=== PATIENT | female | born 1955 | race Caucasian/White ===

== ENCOUNTER → 2016-10-11 | Outpatient (CLI) | payer BC ==
[~2016-10-11] MED LIST: ATIVAN0.5 MG PO; BRINTELLIX5 MG PO; LAMOTRIGINE50 MG PO; LIPITOR20 MG PO; MIRAPEX0.25 MG PO; MULTI VITAMIN1 EACH PO; SYNTHROID0.05 MG PO; WELLBUTRIN PO
--- NOTE | ~2016-10-11 | EKG ---
PATIENT: ULISES WHARTON UNIT #: [id number] Ventricular Rate: 73 BPM Atrial Rate: 73 BPM P-R Interval: 158 ms QRS Duration: 78 ms Q-T Interval: 396 ms QTC Calculation(Bezet): 436 ms P [place]: 61 degrees Calculated R [place]: 14 degrees Calculated T [place]: 69 degrees Diagnosis Line: Normal sinus rhythm Diagnosis Line: Normal ECG Diagnosis Line: No previous ECGs available Diagnosis Line: Confirmed by ALEXANDER SO MD ([id number]) on 10/11/2016 Diagnosis Line: 5:47:27 PM INTERPRETING MD: SARAY FREITAS
--- NOTE | ~2016-10-11 | CO ---
Unit #: [id number] #: [id number] Patient: ULISES WHARTON [id number] [address] [address] [id number] O MR#: [id number] NAME: ULISES WHARTON ROOM: Age: 61 Sex: F Admission Date: 10/11/2016 : 1955 Attending Physician: Shilo Escalera M.D. Requesting Physician: Shilo Escalera M.D. Consultation Date: 10/11/2016 CONSULTATION REPORT REASON FOR CONSULTATION Pre-ECT medical evaluation for ECT scheduled by Dr. Shilo Escalera for October 12, 2016. HISTORY OF PRESENT ILLNESS The patient is a 61-year-old female who presents to preprocedural screening for the reason as indicated above. She denies upper chest, back, arm, neck, or jaw pain or pressure. She does state that she feels anxiety in her chest, but this is a typical response for her to anxiety. She denies shortness of air, dyspnea on exertion, paroxysmal nocturnal dyspnea, orthopnea, and obstructive sleep apnea. She denies palpitations. She denies lightheadedness, dizziness, presyncope, or syncope. She denies myocardial infarction or known history of heart problems and denies congestive heart failure, CVA, TIA, diabetes mellitus, and history of kidney issues. PAST MEDICAL HISTORY 1. Depression with history of ECT. 2. History of left breast cancer, status post lumpectomy with lymph node dissection, status post chemotherapy, status post radiation therapy. 3. Anxiety. 4. Hypothyroidism. 5. Hyperlipidemia. 6. Osteoarthritis. PAST SURGICAL HISTORY 1. Breast biopsy bilaterally x2 and left breast lumpectomy with lymph node dissection. 2. Right total hip arthroplasty in 2014. 3. Hysterectomy. Patient denies a personal and family history of complications to anesthesia. ALLERGIES NAPROXEN CAUSES A RASH. Denies latex allergy. HOME MEDICATIONS Patient is to bring a list of her medications to be entered into the system tomorrow. SOCIAL HISTORY Denies tobacco use and illicit drug use. Drinks ETOH socially. Unit #: [id number] #: [id number] Patient: ULISES WHARTON FAMILY HISTORY Denies coronary artery disease, diabetes, stroke, congestive heart failure, and hypertension. REVIEW OF SYSTEMS Patient states she "feels anxious" today. She has a very small laceration on the lateral aspect of the third finger without erythema, edema, induration, or tenderness. A 10-point review of systems was conducted and was otherwise negative except as indicated under History of Present Illness above. PHYSICAL EXAMINATION GENERAL: A 61-year-old female awake, alert, and in no acute distress. VITAL SIGNS: Temperature 99.2, heart rate 69, respiratory rate 16, blood pressure 104/72, and oxygen saturation 99% on room air. HEENT: Atraumatic and normocephalic. Sclerae are anicteric. No discharge from eyes, ears, or nares. LYMPHATICS: No preauricular, postauricular, tonsillar, submental, anterior, or posterior cervical adenopathy. ENDOCRINE: Small bilateral fibroid nodules without thyromegaly, nontender. RESPIRATORY: Clear to auscultation all torre bilaterally without wheezes, rhonchi, or rales. CARDIOVASCULAR: S1 and S2, regular rate and rhythm, without murmur or rub. GASTROINTESTINAL: Bowel sounds positive x4. Soft, nontender, and nondistended. EXTREMITIES: No edema, cyanosis, or clubbing. MUSCULOSKELETAL: Strength 5 over 5 all extremities bilaterally to flexion and extension without atrophy or muscle tenderness. NEUROLOGIC: Alert and oriented x3. Speech clear. Follows commands and moves all extremities bilaterally. DIAGNOSTIC STUDIES LABORATORY: WBC 5.9, hemoglobin 14.4, hematocrit 41.8, and platelets 281,000. Sodium 137, potassium 4.1, chloride 107, CO2 of 23, glucose 96, BUN 12, creatinine 0.9, calcium 9.4, AST 29, ALT 32, alkaline phosphatase 92, bilirubin total 0.7, total protein 7.6, and albumin 4.9. TSH 1.12. Urinalysis with leukocyte esterase 2+, WBCs 5-10, bacteria negative, and squamous cells none seen. Urine culture and sensitivity report pending at this time. CARDIOLOGY: 12-lead EKG normal sinus rhythm, normal ECG, confirmed report pending at this time. IMPRESSION Patient is a 61-year-old female who presents to preprocedural screening for: 1. Pre-electroconvulsive therapy medical evaluation. Patient's Caro Revised Cardiac Risk Index is equal to 0.4%. This represents the patient's risk if she were undergoing a surgical procedure not involving the chest or abdomen for cardiac , fatal or nonfatal myocardial infarction, cardiopulmonary arrest, arrhythmia, and/or pulmonary edema. Patient wishes to proceed with electroconvulsive therapy at this time. 2. History of left breast cancer, status post lumpectomy and lymph node dissection, status post chemotherapy and radiation therapy. Stable. 3. Anxiety and depression. 4. Hypothyroidism. Her TSH is in normal range today. Unit #: [id number] #: [id number] Patient: ULISES WHARTON 5. Hyperlipidemia. 6. Osteoarthritis. 7. Left third finger laceration, small, without evidence of infection. Thank you for allowing us to participate in the care of this patient. All further beth-ECT orders including medication management will be by Dr. Escalera. Dictated by... Yokasta Johnson A.P.R.N. for Caridad Sinah/pao TD: 10/11/2016 14:05 JOB #: [id number] CONSULTATION REPORT X Yokasta Johnson APRN X CONSULTATION REPORT
[2016-10-11 12:08] LABS: HEMATOCRIT 41.8 % (35.0-45.0); HEMOGLOBIN 14.4 gm/dL (12.0-16.0); MEAN CELL VOLUME 90.7 FL (83-96); MEAN CORPUSCULAR HEMOGLOBIN 31.2 PG (28-34); MEAN CORPUSCULAR HGB CONC 34.4 g/dL (30-36); MEAN PLATELET VOLUME 8.4 FL (6.5-11.5); RED BLOOD COUNT 4.61 X10e (3.90-5.30); RED CELL DISTRIBUTION WIDTH 12.6 % (11.0-15.5); WHITE BLOOD COUNT 5.9 X10e3 (4.0-10.5)
[2016-10-11 12:12] LABS: URINE APPEARANCE CLOUDY; URINE BILIRUBIN NEG (NEG); URINE BLOOD NEG (NEG); URINE COLOR YELLOW; URINE GLUCOSE NEG (NEG); URINE KETONE NEG (NEG); URINE LEUKOCYTE ESTERASE 2+ (NEG); URINE NITRATE NEG (NEG); URINE PROTEIN NEG (NEG); URINE SPECIFIC GRAVITY 1.011 (1.003-1.035); URINE UROBILINOGEN 0.2 MG/DL (NEG)
[2016-10-11 12:14] LABS: URBCS1 AUWI 0-2 /[HPF] (0-2); URINE BACTERIA AUWI NEG (NEGATIVE); URINE SQUAMOUS EPITHELIAL CELL NONE SEEN /[HPF]
[2016-10-11 12:15] LABS: URINE SOURCE CLEAN CATCH
[2016-10-11 12:40] LABS: ALBUMIN SERUM 4.9 g/dL (3.5-5.0); ALKALINE PHOSPHATASE 92 U/L (32-92); ALT (SGPT) 32 U/L (10-40); AST (SGOT) 29 U/L (10-42); BILIRUBIN,TOTAL 0.7 mg/dL (0.2-2.0); BLOOD UREA NITROGEN 12 mg/dL (9-23); BUN/CREATININE RATIO 13.33; CALCIUM SERUM 9.4 mg/dL (8.4-10.2); CARBON DIOXIDE 23 mmol/L (22-31); CHLORIDE 107 mmol/L (100-111); CREATININE SERUM 0.9 mg/dL (0.6-1.4); GLOM FILT RATE Estimated ABOVE60 mL/min (>60); GLUCOSE FASTING 96 mg/dL (70-110); POTASSIUM 4.1 mmol/L (3.5-5.1); PROTEIN TOTAL SERUM 7.6 g/dL (6.0-8.3); SODIUM 137 mmol/L (135-145)
== END | disposition home or self-care (01) ==
LOC: CAMB 11:26
PROVIDERS: Psychiatry & Neurology Psychiatry
DX: Z01.818 Encounter for other preprocedural examination (principal); F33.2 Major depressive disorder, recurrent severe without psychotic features
CPT/HCPCS: 36415; 80053; 81003; 84443; 85027; 93005

== ENCOUNTER → 2016-10-12 | Day surgery (SDC) | payer BC ==
--- NOTE | ~2016-10-12 | ECT ---
Unit #: [id number] #: [id number] Patient: ULISES WHARTON [id number] [address] [address] [id number] O MR#: [id number] NAME: ULISES WHARTON ROOM: Age: 61 Sex: F Admission Date: 10/12/2016 : 1955 Discharge Date: Attending Physician: Shilo Escalera M.D. Primary Care Physician: Primary Care Physician No ECT NOTE DATE OF TREATMENT 10/12/2016 TREATMENT NUMBER 1 TREATMENT MODALITY Unilateral ECT ANESTHESIA Glycopyrrolate: 0.2 mg Brevital: 150 mg Succinylcholine: 100 mg TREATMENT PARAMETERS Charge: 72 millicoulombs Pulse Width: 1.0 milliseconds Frequency: 30 Hertz Duration: 1.5 seconds Current: 800 milliamps TREATMENT DELIVERED Energy: 14.8 joules Impedance: 256 ohms Charge: 72 millicoulombs SEIZURE MEASURES OMS: 41 seconds EE seconds COMPLICATIONS None. SUMMARY The patient had a good seizure with OMS and EEG measures. Depression is pretty significant with psychomotor retardation, poor focus and concentration, loss of interest in activities. No suicidal or homicidal ideation is noted. I will continue her ECT treatments on Saturday. DIFFERENTIAL DIAGNOSES AXIS I: F33.2. AXIS II: Deferred. AXIS III: Nothing acute. Unit #: [id number] #: [id number] Patient: ULISES WHARTON Dictated by... Caridad Petty/hermila TD: 10/13/2016 14:00 JOB #: [id number] ECT NOTE X Shilo Escalera MD <ELECTRONICALLY SIGNED> 03/26/17 1702 X ECT
== END | disposition home or self-care (01) ==
LOC: CSUR 07:58
DX: F33.2 Major depressive disorder, recurrent severe without psychotic features (principal); E03.9 Hypothyroidism, unspecified; E78.5 Hyperlipidemia, unspecified; Z79.899 Other long term (current) drug therapy; Z90.710 Acquired absence of both cervix and uterus; Z98.890 Other specified postprocedural states; Z88.8 Allergy status to other drugs, medicaments and biological substances
CPT/HCPCS: 90870; J0330

== ENCOUNTER → 2016-10-15 | Day surgery (SDC) | payer BC ==
--- NOTE | ~2016-10-15 | ECT ---
Unit #: [id number] #: [id number] Patient: ULISES WHARTON [id number] [address] [address] [id number] O MR#: [id number] NAME: ULISES WHARTON ROOM: Age: 61 Sex: F Admission Date: 10/15/2016 : 1955 Discharge Date: Attending Physician: Shilo Escalera M.D. Primary Care Physician: Primary Care Physician No ECT NOTE DATE OF TREATMENT 10/15/2016 TREATMENT NUMBER Two. TREATMENT MODALITY Unilateral ECT. ANESTHESIA Glycopyrrolate: 0.2 mg Brevital: 130 mg Succinylcholine: 100 mg TREATMENT PARAMETERS Charge: 288 millicoulombs Pulse Width: 1.0 milliseconds Frequency: 40 Hertz Duration: 4.5 seconds Current: 800 milliamps TREATMENT DELIVERED Energy: 60.5 joules Impedance: 252 ohms Charge: 288 millicoulombs SEIZURE MEASURES OMS: 29 seconds EE seconds COMPLICATIONS None. SUMMARY The patient had a good seizure with her OMS and EEG measures on her second stimulus, she feels like she has already gotten a little bit of improvement just from her initial stimulus on Saturday. I will continue her ECT treatments on Saturday and we will continue to follow. DIFFERENTIAL DIAGNOSES AXIS I: F33.2. AXIS II: Deferred. AXIS III: Nothing acute. Unit #: [id number] #: [id number] Patient: ULISES WHARTON AXIS IV: AXIS V: Dictated by... Caridad Petty/marvin TD: 10/16/2016 10:39 JOB #: [id number] ECT NOTE X Shilo Escalera MD <ELECTRONICALLY SIGNED> 03/26/17 1702 X ECT
== END | disposition home or self-care (01) ==
LOC: CSUR 08:08
DX: F33.2 Major depressive disorder, recurrent severe without psychotic features (principal); E03.9 Hypothyroidism, unspecified; E78.5 Hyperlipidemia, unspecified; Z79.899 Other long term (current) drug therapy; Z88.8 Allergy status to other drugs, medicaments and biological substances; Z90.710 Acquired absence of both cervix and uterus; Z96.641 Presence of right artificial hip joint; Z85.3 Personal history of malignant neoplasm of breast
CPT/HCPCS: 90870; J0330

== ENCOUNTER → 2016-10-17 | Day surgery (SDC) | payer BC ==
--- NOTE | ~2016-10-17 | ECT ---
Unit #: [id number] #: [id number] Patient: ULISES WHARTON [id number] [address] [id number] O MR#: [id number] NAME: ULISES WHARTON ROOM: Age: 61 Sex: F Admission Date: 10/17/2016 : 1955 Discharge Date: Attending Physician: Shilo Escalera M.D. Primary Care Physician: Primary Care Physician No ECT NOTE DATE OF TREATMENT 10/17/2016 TREATMENT NUMBER 3 TREATMENT MODALITY Unilateral ECT ANESTHESIA Glycopyrrolate: 0.2 mg Brevital: 150 mg Succinylcholine: 100 mg TREATMENT PARAMETERS Charge: 288 millicoulombs Pulse Width: 1.0 milliseconds Frequency: 40 Hertz Duration: 4.5 seconds Current: 800 milliamps TREATMENT DELIVERED Energy: 62.8 joules Impedance: 262 ohms Charge: 288 millicoulombs SEIZURE MEASURES OMS: 14 seconds EE seconds COMPLICATIONS None. SUMMARY The patient had a good seizure with her OMS and EEG measures. She has noticed a marked improvement of her depressive symptoms at her first 2 ECT's. I will put her on the schedule for Saturday and if we need to adjust her treatment at that point or if she feels that she has gotten back into remission, we can wrap it up at that point. DIFFERENTIAL DIAGNOSES AXIS I: F33.2. AXIS II: Deferred. AXIS III: Nothing acute. Unit #: [id number] #: [id number] Patient: ULISES WHARTON Dictated by... Caridad Petty/hermila TD: 10/17/2016 22:09 JOB #: [id number] ECT NOTE X Shilo Escalera MD <ELECTRONICALLY SIGNED> 03/26/17 1702 X ECT
== END | disposition home or self-care (01) ==
LOC: CSUR 06:57
DX: F33.2 Major depressive disorder, recurrent severe without psychotic features (principal); E78.5 Hyperlipidemia, unspecified; E03.9 Hypothyroidism, unspecified; Z88.8 Allergy status to other drugs, medicaments and biological substances; Z79.899 Other long term (current) drug therapy; Z90.710 Acquired absence of both cervix and uterus; Z96.641 Presence of right artificial hip joint; Z98.890 Other specified postprocedural states
CPT/HCPCS: 90870; J0330; J1885

== ENCOUNTER → 2016-10-22 | Day surgery (SDC) | payer BC ==
--- NOTE | ~2016-10-22 | ECT ---
Unit #: [id number] #: [id number] Patient: ULISES WHARTON [id number] [address] [address] [id number] O MR#: [id number] NAME: ULISES WHARTON ROOM: Age: 61 Sex: F Admission Date: 10/22/2016 : 1955 Discharge Date: Attending Physician: Shilo Escalera M.D. Primary Care Physician: Primary Care Physician No ECT NOTE DATE OF TREATMENT 10/22/2016 TREATMENT NUMBER Four. TREATMENT MODALITY Unilateral ECT. ANESTHESIA Glycopyrrolate: 0.2 mg Brevital: 150 mg Succinylcholine: 100 mg TREATMENT PARAMETERS Charge: 288 millicoulombs Pulse Width: 1.0 milliseconds Frequency: 40 Hertz Duration: 4.5 seconds Current: 800 milliamps TREATMENT DELIVERED Energy: 63.4 joules Impedance: 263 ohms Charge: 288 millicoulombs SEIZURE MEASURES OMS: 22 seconds EE seconds COMPLICATIONS None. SUMMARY The patient had a good seizure with both OMS and EEG measures. Depression has shown a bit of relapse over the last several days. She had some psychomotor retardation, poor focus and concentration, and loss of interest in activities, some decreased appetite. No suicidal or homicidal ideation is noted today. I will continue her ECT treatments on Saturday. DIFFERENTIAL DIAGNOSES AXIS I: F33.2. AXIS II: Deferred. Unit #: [id number] #: [id number] Patient: ULISES WHARTON AXIS III: Nothing acute. AXIS IV: AXIS V: Dictated by... Shilo Escalera M.D. ALEXANDER/marvin TD: 10/23/2016 12:47 JOB #: [id number] ECT NOTE Page 1 of 1 X Shilo Escalera MD <ELECTRONICALLY SIGNED> 03/26/17 1702 X ECT
== END | disposition home or self-care (01) ==
LOC: CSUR 07:07
DX: F33.2 Major depressive disorder, recurrent severe without psychotic features (principal); E03.9 Hypothyroidism, unspecified; E78.00 Pure hypercholesterolemia, unspecified; Z79.899 Other long term (current) drug therapy; Z88.6 Allergy status to analgesic agent; Z90.710 Acquired absence of both cervix and uterus
CPT/HCPCS: 90870; J1885

== ENCOUNTER → 2016-10-24 | Day surgery (SDC) | payer BC ==
--- NOTE | ~2016-10-24 | ECT ---
Unit #: [id number] #: [id number] Patient: ULISES WHARTON [id number] [address] [address] [id number] O MR#: [id number] NAME: ULISES WHARTON ROOM: Age: 61 Sex: F Admission Date: 10/24/2016 : 1955 Discharge Date: Attending Physician: Shilo Escalera M.D. Primary Care Physician: No Primary Care Physician ECT NOTE DATE OF TREATMENT 10/24/2016 TREATMENT NUMBER Five. TREATMENT MODALITY Unilateral ECT. ANESTHESIA Glycopyrrolate: 0.2 mg. Brevital: 150 mg. Succinylcholine: 100 mg. TREATMENT PARAMETERS Charge: 288 millicoulombs Pulse Width: 1.08 milliseconds Frequency: 40 Hertz Duration: 4.5 seconds Current: 800 milliamps TREATMENT DELIVERED Energy: 65.1 joules Impedance: 272 ohms Charge: 288 millicoulombs SEIZURE MEASURES OMS: 27 seconds EE seconds COMPLICATIONS None. SUMMARY The patient had a good seizure with OMS and EEG measures. Depression seems to be pretty well controlled from her ECT treatment thus far. Will give her one more ECT on Saturday. She is going to be out of town next week and we will just wait until she gets back into town and assess at that point. DIFFERENTIAL DIAGNOSES AXIS I: F33.2. Unit #: [id number] #: [id number] Patient: ULISES WHARTON AXIS II: Deferred. AXIS III: Nothing acute. Dictated by... Shilo Escalera M.D. ALEXANDER/mc TD: 10/24/2016 12:20 JOB #: [id number] ECT NOTE Page 1 of 1 X Shilo Escalera MD <ELECTRONICALLY SIGNED> 03/26/17 1702 X ECT
== END | disposition home or self-care (01) ==
LOC: CSUR 07:04
DX: F33.2 Major depressive disorder, recurrent severe without psychotic features (principal); E03.9 Hypothyroidism, unspecified; Z79.899 Other long term (current) drug therapy; Z88.8 Allergy status to other drugs, medicaments and biological substances
CPT/HCPCS: 90870; J0330; J1885

== ENCOUNTER → 2016-10-26 | Day surgery (SDC) | payer BC ==
--- NOTE | ~2016-10-26 | ECT ---
Unit #: [id number] #: [id number] Patient: ULISES WHARTON [id number] [address] [address] [id number] O MR#: [id number] NAME: ULISES WHARTON ROOM: Age: 61 Sex: F Admission Date: 10/26/2016 : 1955 Discharge Date: Attending Physician: Shilo Escalera M.D. Primary Care Physician: No Primary Care Physician ECT NOTE DATE OF TREATMENT 10/26/2016 TREATMENT NUMBER Six. TREATMENT MODALITY Unilateral ECT. ANESTHESIA Glycopyrrolate: 0.2 mg Brevital: 150 mg Succinylcholine: 100 mg TREATMENT PARAMETERS Charge: 288 millicoulombs Pulse Width: 1.0 milliseconds Frequency: 40 Hertz Duration: 4.5 seconds Current: 800 milliamps TREATMENT DELIVERED Energy: 59.7 joules Impedance: 252 ohms Charge: 288 millicoulombs SEIZURE MEASURES OMS: 18 seconds EE seconds COMPLICATIONS None. SUMMARY The patient had a good seizure with OMS and EEG measures. Her depression has remitted. We do not see any symptoms of depression on evaluation today and we will conclude her ECT treatments today. DIFFERENTIAL DIAGNOSES AXIS I: F33.2 AXIS II: Deferred. Unit #: [id number] #: [id number] Patient: ULISES WHARTON AXIS III: Nothing acute. Dictated by... Shilo Escalera M.D. ALEXANDER/kamaljit TD: 10/26/2016 13:54 JOB #: [id number] ECT NOTE Page 1 of 1 X Shilo Escalera MD <ELECTRONICALLY SIGNED> 03/26/17 1702 X ECT
== END | disposition home or self-care (01) ==
LOC: CSUR 07:21
DX: F33.2 Major depressive disorder, recurrent severe without psychotic features (principal); E03.9 Hypothyroidism, unspecified; Z79.899 Other long term (current) drug therapy; Z88.6 Allergy status to analgesic agent; Z90.710 Acquired absence of both cervix and uterus; Z96.641 Presence of right artificial hip joint
CPT/HCPCS: 90870; J0330; J1885

== ENCOUNTER → 2016-11-07 | Day surgery (SDC) | payer BC ==
--- NOTE | ~2016-11-07 | ECT ---
Unit #: [id number] #: [id number] Patient: ULISES WHARTON [id number] [address] [address] [id number] O MR#: [id number] NAME: ULISES WHARTON ROOM: Age: 61 Sex: F Admission Date: 11/07/2016 : 1955 Discharge Date: Attending Physician: Shilo Escalera M.D. Referring Physician: Shilo Escalera M.D. Primary Care Physician: Primary Care Physician No ECT NOTE DATE OF TREATMENT 11/07/2016 TREATMENT NUMBER Maintenance 1 TREATMENT MODALITY Unilateral ECT. ANESTHESIA Glycopyrrolate: 0.2 mg Brevital: 150 mg Succinylcholine: 100 mg TREATMENT PARAMETERS Charge: 352 millicoulombs Pulse Width: 1.0 milliseconds Frequency: 40 Hertz Duration: 5.5 seconds Current: 800 milliamps TREATMENT DELIVERED Energy: 77.4 joules Impedance: 268 ohms Charge: 352 millicoulombs SEIZURE MEASURES OMS: 25 seconds EE seconds COMPLICATIONS None. SUMMARY The patient had a good seizure with OMS and EEG measures. Maintenance ECT has been initiated and we will begin her ECT at an interval of one month and assess and just follow. If we need to shorten up that interval we will over the next month or so, we will just kind of watch and see how she does. DIFFERENTIAL DIAGNOSIS [place] I: F33.2. [place] II: Deferred. [place] III: Nothing acute. Unit #: [id number] #: [id number] Patient: ULISES WHARTON Dictated by... Caridad Petty/milton TD: 11/28/2016 06:57 JOB #: [id number] ECT NOTE Page 1 of 1 X Shilo Escalera MD <ELECTRONICALLY SIGNED> 03/04/17 1207 X ECT
== END | disposition home or self-care (01) ==
LOC: CSUR 06:57
DX: F33.2 Major depressive disorder, recurrent severe without psychotic features (principal); E03.9 Hypothyroidism, unspecified; E78.00 Pure hypercholesterolemia, unspecified; Z79.899 Other long term (current) drug therapy; Z88.6 Allergy status to analgesic agent
CPT/HCPCS: 90870; J0330; J1885

== ENCOUNTER → 2016-11-30 | Day surgery (SDC) | payer BC ==
--- NOTE | ~2016-11-30 | ECT ---
Unit #: [id number] #: [id number] Patient: ULISES WHARTON [id number] [address] [address] [id number] O MR#: [id number] NAME: ULISES WHARTON ROOM: Age: 61 Sex: F Admission Date: 11/30/2016 : 1955 Discharge Date: Attending Physician: Shilo Escalera M.D. Primary Care Physician: Primary Care Physician No ECT NOTE DATE OF TREATMENT 11/30/2016 TREATMENT NUMBER 2, maintenance TREATMENT MODALITY Unilateral ECT. ANESTHESIA Glycopyrrolate: 0.2 mg. Brevital: 150 mg. Succinylcholine: 100 mg. TREATMENT PARAMETERS Charge: 352 millicoulombs Pulse Width: 1.0 milliseconds Frequency: 40 Hertz Duration: 5.5 seconds Current: 800 milliamps TREATMENT DELIVERED Energy: 70.4 joules Impedance: 241 ohms Charge: 352 millicoulombs SEIZURE MEASURES OMS: 29 seconds EE seconds COMPLICATIONS None. SUMMARY The patient had a good seizure with OMS and EEG measures. Depression has not shown a whole lot of change in the last couple of weeks, but she has noted some mild return of symptoms, so we will continue her ECT as a maintenance in the next 2 weeks. DIFFERENTIAL DIAGNOSES AXIS I: F33.2 AXIS II: Deferred. Unit #: [id number] #: [id number] Patient: ULISES WHARTON AXIS III: Nothing acute. Dictated by... Caridad Petty/david TD: 11/30/2016 12:51 JOB #: [id number] ECT NOTE Page 1 of 1 X Shilo Escalera MD <ELECTRONICALLY SIGNED> 03/04/17 1207 X ECT
== END | disposition home or self-care (01) ==
LOC: CSUR 08:27
DX: F33.2 Major depressive disorder, recurrent severe without psychotic features (principal)
CPT/HCPCS: 90870; J0330; J1885

== ENCOUNTER → 2016-12-24 | Day surgery (SDC) | payer BC ==
--- NOTE | ~2016-12-24 | ECT ---
Unit #: [id number] #: [id number] Patient: ULISES WHARTON [id number] [address] [address] [id number] O MR#: [id number] NAME: ULISES WHARTON ROOM: Age: 61 Sex: F Admission Date: 12/24/2016 : 1955 Discharge Date: Attending Physician: Shilo Escalera M.D. Primary Care Physician: Primary Care Physician No ECT NOTE DATE OF TREATMENT 12/24/2016 TREATMENT NUMBER 3 TREATMENT MODALITY Unilateral ECT. ANESTHESIA Glycopyrrolate: 0.2 mg Brevital: 150 mg Succinylcholine: 100 mg TREATMENT PARAMETERS Charge: 352 millicoulombs Pulse Width: 1.0 milliseconds Frequency: 40 Hertz Duration: 5.5 seconds Current: 800 milliamps TREATMENT DELIVERED Energy: 70.4 joules Impedance: 247 ohms Charge: 352 millicoulombs SEIZURE MEASURES OMS: 15 seconds EE seconds COMPLICATIONS None. SUMMARY Patient had a good seizure with OMS and EEG measures. Her depression continues to be a bit of a persistent problem though the maintenance ECT does seem to be keeping things at bay. I will bring her back in 2 weeks for another maintenance ECT and we will evaluate and adjust as needed. DIFFERENTIAL DIAGNOSIS [place] I: F.33.2. [place] II: Deferred. [place] III: Nothing acute. Unit #: [id number] #: [id number] Patient: ULISES WHARTON Dictated by... Caridad Petty/sarah TD: 12/25/2016 04:47 JOB #: [id number] ECT NOTE Page 1 of 1 X Shilo Escalera MD <ELECTRONICALLY SIGNED> 03/04/17 1207 X ECT
== END | disposition home or self-care (01) ==
LOC: CSUR 07:53
DX: F33.2 Major depressive disorder, recurrent severe without psychotic features (principal); E03.9 Hypothyroidism, unspecified; E78.5 Hyperlipidemia, unspecified; Z79.899 Other long term (current) drug therapy; M19.90 Unspecified osteoarthritis, unspecified site; Z85.3 Personal history of malignant neoplasm of breast; Z90.710 Acquired absence of both cervix and uterus; Z88.8 Allergy status to other drugs, medicaments and biological substances; Z88.6 Allergy status to analgesic agent
CPT/HCPCS: 90870; J1885

== ENCOUNTER → 2017-02-01 | Day surgery (SDC) | payer BC ==
--- NOTE | ~2017-02-01 | ECT ---
Unit #: [id number] #: [id number] Patient: ULISES WAHRTON [id number] [address] [address] [id number] O MR#: [id number] NAME: ULISES WHARTON ROOM: Age: 61 Sex: F Admission Date: 02/01/2017 : 1955 Discharge Date: Attending Physician: Shilo Escalera M.D. Primary Care Physician: Primary Care Physician No ECT NOTE DATE OF TREATMENT 02/01/2017 TREATMENT NUMBER 4, maintenance TREATMENT MODALITY Unilateral ECT. ANESTHESIA Glycopyrrolate: 0.2 mg. Brevital: 150 mg. Succinylcholine: 100 mg. TREATMENT PARAMETERS Charge: 288 millicoulombs Pulse Width: 1.0 milliseconds Frequency: 40 Hertz Duration: 4.5 seconds Current: 800 milliamps TREATMENT DELIVERED Energy: 65.1 joules Impedance: 275 ohms Charge: 288 millicoulombs SEIZURE MEASURES OMS: 30 seconds EE seconds COMPLICATIONS None. SUMMARY The patient had a good seizure with OMS and EEG measures. Depression seems to be pretty well managed with her maintenance ECTs about every 4 weeks. We will bring her back in 4 weeks for her next maintenance ECT, and I will be looking for a psychiatrist who is doing ECT that can take over her maintenance ECT after we retire our practice at the end of February. DIFFERENTIAL DIAGNOSES AXIS I: F33.2. AXIS II: Deferred. Unit #: [id number] #: [id number] Patient: ULISES WHARTON AXIS III: Nothing acute. Dictated by... Shilo Escalera M.D. ALEXANDER/david TD: 02/01/2017 11:31 JOB #: [id number] ECT NOTE Page 1 of 1 X Shilo Esaclera MD <ELECTRONICALLY SIGNED> 03/04/17 1207 X ECT
== END | disposition home or self-care (01) ==
LOC: CSUR 07:44
DX: F33.2 Major depressive disorder, recurrent severe without psychotic features (principal); E03.9 Hypothyroidism, unspecified; Z79.899 Other long term (current) drug therapy; M19.90 Unspecified osteoarthritis, unspecified site; Z85.3 Personal history of malignant neoplasm of breast; Z90.710 Acquired absence of both cervix and uterus; Z88.8 Allergy status to other drugs, medicaments and biological substances
CPT/HCPCS: 90870; J1885

== ENCOUNTER → 2017-02-22 | Day surgery (SDC) | payer BC ==
--- NOTE | ~2017-02-22 | ECT ---
Unit #: [id number] #: [id number] Patient: ULISES WHARTON [id number] [address] [address] [id number] O MR#: [id number] NAME: ULISES WHARTON ROOM: Age: 61 Sex: F Admission Date: 02/22/2017 : 1955 Discharge Date: Attending Physician: Shilo Escalera M.D. Referring Physician: Shilo Escalera M.D. Primary Care Physician: Primary Care Physician No ECT NOTE DATE OF TREATMENT 02/22/2017 TREATMENT NUMBER 1 TREATMENT MODALITY Unilateral ECT. ANESTHESIA Glycopyrrolate: 0.2 mg. Brevital: 150 mg. Succinylcholine: 100 mg. TREATMENT PARAMETERS Charge: 288 millicoulombs Pulse Width: 1.0 milliseconds Frequency: 40 Hertz Duration: 4.5 seconds Current: 800 milliamps TREATMENT DELIVERED Energy: 60.8 joules Impedance: 257 ohms Charge: 288 millicoulombs SEIZURE MEASURES OMS: 25 seconds EE seconds COMPLICATIONS None. SUMMARY The patient had a good seizure with OMS and EEG measures. Her depression has started to come back a bit over the last several weeks. She has psychomotor retardation, poor focus and concentration, and loss of interest in activities, a subjective feeling of depression, poor sleep, loss of appetite. No suicidal or homicidal ideations noted. I will continue her ECT treatments on Saturday. DIFFERENTIAL DIAGNOSES AXIS I: F33.2. Unit #: [id number] #: [id number] Patient: ULISES WHAROTN AXIS II: Deferred. AXIS III: Nothing acute. Dictated by... Shilo Escalera M.D. ALEXANDER/david TD: 02/23/2017 08:30 JOB #: [id number] ECT NOTE Page 1 of 1 X Shilo Escalera MD <ELECTRONICALLY SIGNED> 03/04/17 1207 X ECT
== END | disposition home or self-care (01) ==
LOC: CSUR 02-06 09:20
DX: F33.2 Major depressive disorder, recurrent severe without psychotic features (principal); E03.9 Hypothyroidism, unspecified; M19.90 Unspecified osteoarthritis, unspecified site; Z88.8 Allergy status to other drugs, medicaments and biological substances; Z85.3 Personal history of malignant neoplasm of breast; Z79.899 Other long term (current) drug therapy; Z90.710 Acquired absence of both cervix and uterus; Z98.890 Other specified postprocedural states
CPT/HCPCS: 90870; J0330; J1885

== ENCOUNTER → 2017-02-27 | Day surgery (SDC) | payer BC ==
--- NOTE | ~2017-02-27 | ECT ---
Unit #: [id number] #: [id number] Patient: ULISES WHARTON [id number] [address] [address] [id number] O MR#: [id number] NAME: ULISES WHARTON ROOM: Age: 61 Sex: F Admission Date: 02/27/2017 : 1955 Discharge Date: Attending Physician: Shilo Escalera M.D. Primary Care Physician: Primary Care Physician No ECT NOTE DATE OF TREATMENT 02/27/2017 TREATMENT NUMBER Eleven TREATMENT MODALITY Unilateral ECT ANESTHESIA Glycopyrrolate: 0.2 mg Brevital: 150 mg Succinylcholine: 100 mg TREATMENT PARAMETERS Charge: 288 millicoulombs Pulse Width: 1.0 milliseconds Frequency: 40 Hertz Duration: 4.5 seconds Current: 800 milliamps TREATMENT DELIVERED Energy: 61 joules Impedance: 257 ohms Charge: 288 millicoulombs SEIZURE MEASURES OMS: 30 seconds EE seconds COMPLICATIONS None. SUMMARY The patient had a good seizure with her OMS and EEG measures. Her depression is pretty well maintained. We are going to bring her back in two weeks for June maintenance ECT. She doesn't seem to be showing any signs of depression, little bit of anxiety about the future of her ECT treatments, but otherwise, she has been doing pretty well. DIFFERENTIAL DIAGNOSES AXIS I: F33.2. AXIS II: Deferred. Unit #: [id number] #: [id number] Patient: ULISES WHARTON AXIS III: Nothing acute. AXIS IV: AXIS V: Dictated by... Shilo Escalera M.D. ALEXANDER/marvin TD: 02/27/2017 09:30 JOB #: [id number] ECT NOTE Page 1 of 1 X Shilo Escalera MD <ELECTRONICALLY SIGNED> 03/04/17 1207 X ECT
== END | disposition home or self-care (01) ==
LOC: CSUR 07:19
DX: F33.2 Major depressive disorder, recurrent severe without psychotic features (principal); E03.9 Hypothyroidism, unspecified; Z88.8 Allergy status to other drugs, medicaments and biological substances; Z79.899 Other long term (current) drug therapy; Z90.710 Acquired absence of both cervix and uterus; Z96.641 Presence of right artificial hip joint; Z98.890 Other specified postprocedural states
CPT/HCPCS: 90870; J1885

== ENCOUNTER → 2017-03-11 | Day surgery (SDC) | payer BC ==
--- NOTE | ~2017-03-11 | ECT ---
Unit #: [id number] #: [id number] Patient: ULISES WHARTON [id number] [address] [address] [id number] O MR#: [id number] NAME: ULISES WHARTON ROOM: Age: 61 Sex: F Admission Date: 03/11/2017 : 1955 Discharge Date: Attending Physician: Shilo Escalera M.D. Primary Care Physician: Primary Care Physician No ECT NOTE DATE OF TREATMENT 03/11/2017 TREATMENT NUMBER Twelve TREATMENT MODALITY Unilateral ECT ANESTHESIA Glycopyrrolate: 0.2 mg Brevital: 150 mg Succinylcholine: 100 mg TREATMENT PARAMETERS Charge: 360 millicoulombs Pulse Width: 1.0 milliseconds Frequency: 50 Hertz Duration: 4.5 seconds Current: 800 milliamps TREATMENT DELIVERED Energy: 75.4 joules Impedance: 256 ohms Charge: 360 millicoulombs SEIZURE MEASURES OMS: 27 seconds EE seconds COMPLICATIONS None SUMMARY The patient had a good seizure with OMS and EEG measures. ECT maintenance does seem to be working pretty well for her. We will conclude her course of ECT with this practice today. She is going to follow up with Dr. Merrick Guardado at [facility] for her further maintenance treatments. DIFFERENTIAL DIAGNOSES AXIS I: F33.2. AXIS II: Deferred. Unit #: [id number] #: [id number] Patient: ULISES WHARTON AXIS III: Nothing acute. AXIS IV: AXIS V: Dictated by... Shilo Escalera M.D. ALEXANDER/marvin TD: 03/12/2017 07:16 JOB #: [id number] ECT NOTE Page 1 of 1 X Shilo Escalera MD <ELECTRONICALLY SIGNED> 03/12/17 1219 X ECT
== END | disposition home or self-care (01) ==
LOC: CSUR 07:35
DX: F33.2 Major depressive disorder, recurrent severe without psychotic features (principal); E03.9 Hypothyroidism, unspecified; M19.90 Unspecified osteoarthritis, unspecified site; Z85.828 Personal history of other malignant neoplasm of skin; Z88.6 Allergy status to analgesic agent; Z90.710 Acquired absence of both cervix and uterus; Z90.12 Acquired absence of left breast and nipple; Z96.641 Presence of right artificial hip joint; Z98.890 Other specified postprocedural states
CPT/HCPCS: 90870; J0330; J1885